=== PATIENT | female | born 1955 | race Caucasian/White ===

== ENCOUNTER → 2016-09-14 | Outpatient (CLI) | payer BC ==
--- NOTE | 2016-09-15 16:56 | MRI ---
EXAM DESCRIPTION: MRI left knee. CLINICAL HISTORY: Left knee pain. Fall injury June 2016. Pain and swelling COMPARISON: None. TECHNIQUE: Multi planar, multi sequence MRI evaluation of the left knee. FINDINGS: Focal radial free edge defect mid body lateral meniscus, coronal PD image 19. The remainder of the lateral meniscus intact. Mild lateral tibial chondrosis, grade 1 No medial meniscal tear. Grade 4 chondrosis medial femoral condyle weight-bearing surface spanning about 2.5 cm yovani posterior by 1.5 cm transverse. Subchondral cystic change and edema with small joint line osteophyte. High-grade chondrosis of the tibia with a small focus of grade 4 subchondral edema anteriorly Grade 4 chondrosis, multifocal involving both medial and lateral facet and apex of the patella. Multifocal subchondral cystic change and edema. Femoral trochlear cartilage intact with mild thinning medially ACL, PCL, MCL and fibular collateral ligaments are intact Biceps femoris, popliteus and iliotibial band tendons are normal. Patellar and quadriceps and tendons of the posteromedial knee are intact Small joint effusion. No focal synovitis or intra-articular body. IMPRESSION: Radial free edge defect mid body lateral meniscus. No other meniscal tear Grade 4 chondrosis medial femorotibial primarily affecting the medial femoral condyle Grade 4 chondrosis of the patella both mediolateral facet Electronically signed by: Clement Dyer MD 09/15/2016 16:54
== END | disposition home or self-care (01) ==
LOC: MRI 13:32
PROVIDERS: ATTEND Nurse Practitioner Family
DX: M22.42 Chondromalacia patellae, left knee (principal)

== ENCOUNTER → 2017-04-19 | Outpatient (CLI) | payer BC | END | disposition home or self-care (01) | LOC: GMAJ 15:02 | PROVIDERS: ATTEND Family Medicine | DX: Z00.00 Encounter for general adult medical examination without abnormal findings (principal) ==

== ENCOUNTER → 2017-10-25 | Outpatient (CLI) | payer BC | END | disposition home or self-care (01) | LOC: GMAJ 10:24 | PROVIDERS: ATTEND Family Medicine | DX: I10 Essential (primary) hypertension (principal) ==

== ENCOUNTER → 2020-05-01 | Outpatient (CLI) | payer BC | LOC: GMAF 17:10 | PROVIDERS: ATTEND Nurse Practitioner Family | DX: R35.0 Frequency of micturition (principal); J06.9 Acute upper respiratory infection, unspecified ==